=== PATIENT | female | born 1960 | race Caucasian/White ===

== ENCOUNTER 2024-11-10 18:46 | Emergency (ER) | payer OTHER ==
[~2024-11-10] VITALS: Ht 149.9 cm; Wt 55.3 kg
[2024-11-10 20:13] VITALS: BP 117/78; PULSE 65; RESP 17; TEMP 98; O2SAT 99
== END 2024-11-10 20:14 | disposition home or self-care (01) ==
LOC: ER 18:48
DX: M79.89 Other specified soft tissue disorders (principal); M25.461 Effusion, right knee; Z88.0 Allergy status to penicillin; Z88.1 Allergy status to other antibiotic agents; Z88.2 Allergy status to sulfonamides; W01.0XXA Fall on same level from slipping, tripping and stumbling without subsequent striking against object, initial encounter; Y93.01 Activity, walking, marching and hiking; Y92.89 Other specified places as the place of occurrence of the external cause; Y99.8 Other external cause status
CPT/HCPCS: 73130; 73564; 99284

== ENCOUNTER 2025-05-21 13:43 | Outpatient (CLI) | payer OTHER ==
--- NOTE | 2025-05-21 13:15 | RADIOLOGY REPORT ---
EXAM: DI KNEES/BILAT AP STANDING CLINICAL INDICATION: BILATERAL PRIMARY OSTEOARTHRITIS TECHNIQUE: DI KNEES/BILAT AP STANDING Comparison: DI KNEE, COMP 4 VW MIN on DOS: 11/10/24 FINDINGS/IMPRESSION: There is no evidence of acute fracture or dislocation. Moderate bilateral tricompartamental joint space narrowing. The alignment is anatomical. There is no radiopaque foreign body.
--- NOTE | 2025-05-21 20:51 | RADIOLOGY REPORT ---
EXAM: MR MRI LOWER EXTREMITY LEFT HISTORY: L KNEE PAIN, CHRONIC PAIN SYNDROME, UNILAT PRIM OSTEOARTHRITIS COMPARISON: DI KNEE, COMP 4 VW MIN on DOS: 11/10/24 TECHNIQUE: Multiplanar, multisequence imaging of the left knee was performed without contrast FINDINGS: MEDIAL COMPARTMENT: Intact medial meniscus. No focal chondrosis or subchondral edema. LATERAL COMPARTMENT: Intact lateral meniscus. No focal chondrosis or subchondral edema. PATELLOFEMORAL COMPARTMENT: No focal chondrosis or subchondral edema. CRUCIATE LIGAMENTS: Intact anterior and posterior cruciate ligaments. MEDIAL SUPPORTING STRUCTURES: Intact medial collateral ligament. LATERAL SUPPORTING STRUCTURES: Intact iliotibial band, lateral capsular ligament, fibular collateral ligament, popliteus, and biceps femoris tendons EXTENSOR MECHANISM: Intact JOINT SPACE/FLUID: Trace knee joint fluid. trace patel's cyst BONES: No acute fracture, osseous contusion, or aggressive focal osseous lesion MUSCLES: Normal in signal intensity and morphology NEUROVASCULAR: Unremarkable OTHER: None IMPRESSION: 1. No MR evidence of significant internal derangement.
== END 2025-05-21 23:59 | disposition home or self-care (01) ==
LOC: MRI02 13:43
PROVIDERS: ATTEND Anesthesiology Pain Medicine
DX: M17.0 Bilateral primary osteoarthritis of knee (principal); Z79.899 Other long term (current) drug therapy; G89.4 Chronic pain syndrome; M25.562 Pain in left knee
CPT/HCPCS: 73565; 73721